=== PATIENT | female | born 1985 ===

== ENCOUNTER 2018-07-16 09:14 | Emergency (ER) | payer OTHER ==
[2018-07-16 09:24] VITALS: BMI 22.6
[2018-07-16 09:31] VITALS: RESP 18
--- NOTE | 2018-07-16 09:50 | C.PDOC ---
History Of Present Illness 33 y/o female,w/PMhx of fibroids, right ovarian cyst, multiple abdominal surgeries, and ? SBO, present to the ER complaining of worsening RLQ abdominal pain and pelvic pain compared to her baseline today. Pt has nausea and vomited x2 today. Denies having fever,chills, and urinary symptoms. Time Seen by Provider: 07/16/18 09:43 Chief Complaint (Nursing): Abdominal Pain History Per: Patient History/Exam Limitations: no limitations Onset/Duration Of Symptoms: Days Current Symptoms Are (Timing): Still Present Severity: Moderate Past Medical History Reviewed: Historical Data, Nursing Documentation, Vital Signs Vital Signs: Last Vital Signs Temp 99 F 07/16/18 09:24 Pulse 74 07/16/18 09:24 Resp 18 07/16/18 09:24 BP 116/77 07/16/18 09:24 Pulse Ox 100 07/16/18 09:24 - Medical History PMH: Chronic Kidney Disease Denies: Depression Other Surgeries: Hx of surgeries - [facility] Procedures INJECT/INFUSE ELECTROLYT (06/01/14) INJECT/INFUSE NEC (06/01/14) Family History: States: No Known Family Hx - Social History Hx Tobacco Use: No Hx Alcohol Use: Yes Hx Substance Use: Yes (marijuana) Review Of Systems Constitutional: Negative for: Fever, Chills Cardiovascular: Negative for: Chest Pain Respiratory: Negative for: Cough Gastrointestinal: Positive for: Nausea, Vomiting, Abdominal Pain. Negative for: Diarrhea Genitourinary: Positive for: Pelvic Pain. Negative for: Dysuria, Hematuria Skin: Negative for: Rash Neurological: Negative for: Weakness, Numbness Physical Exam - Physical Exam Appears: Non-toxic, In Acute Distress, Other (in pain) Skin: Normal Color, Warm, Dry Head: Atraumatic, Normacephalic Eye(s): bilateral: Normal Inspection Oral Mucosa: Moist Neck: Supple Chest: Symmetrical Cardiovascular: Rhythm Regular, No Murmur Respiratory: Normal Breath Sounds, No Rales, No Rhonchi, No Wheezing Gastrointestinal/Abdominal: Bowel Sounds (positive bowel sounds), Soft, Tenderness (right sided pelvic tenderness), No Guarding, No Rebound, Other (vertical old well healed surgical scar distal to umbilicus) Back: No CVA Tenderness Extremity: Normal ROM, No Pedal Edema, No Calf Tenderness Neurological/Psych: Oriented x3, Normal Speech, Normal Cognition ED Course And Treatment - Laboratory Results Result Diagrams: 07/16/18 10:47 07/16/18 10:47 O2 Sat by Pulse Oximetry: 100 (RA) Pulse Ox Interpretation: Normal Medical Decision Making Medical Decision Making: Plan: --Labs --UA --CT-Abd- Pelv. --US- Pelv/Transvag. --Morphine IV pt with multiple abdominal surgeries, multiple ovarian cysts. here with vomiting abdominal pain, eval for sbo 1545 pt feeling better, appears well. pelvic ultrasound neg. ct abdomen has no obstruction, distal esophagus thickened, with moderate constipation. d/c pt home with gi f/u and miralax Disposition Counseled Patient/Family Regarding: Studies Performed, Diagnosis, Need For Followup, Rx Given - Disposition Referrals: Mitesh Mota MD [Medical Doctor] - Thania Jones [Staff Provider] - Disposition: HOME/ ROUTINE Disposition Time: 15:50 Condition: GOOD Additional Instructions: Drink more fluids, and increase fiber in diet. USe Miralax once a day until stool comes out soft. Follow up with Dr Jones, tactical/mobile watch officer. Prescriptions: Polyethylene Glycol 3350 [Miralax] 17 gm PO DAILY #1 bottle Instructions: Constipation, Adult (DC), Acute Abdomen (Belly Pain), Adult (DC) Forms: [facility] (Micronesian), General Discharge Instructions - Clinical Impression Clinical Impression: Constipation, Abdominal pain - PA / INDUSTRIAL MAINTENANCE MANAGER / Resident Statement MD/DO has reviewed & agrees with the documentation as recorded. - Scribe Statement The provider has reviewed the documentation as recorded by the Kenisha Wilkes Provider Attestation All medical record entries made by the Kenisha were at my direction and personally dictated by me. I have reviewed the chart and agree that the record accurately reflects my personal performance of the history, physical exam, medical decision making, and the department course for this patient. I have also personally directed, reviewed, and agree with the discharge instructions and disposition.
[2018-07-16 10:51] LABS: BASO % 0.5 % (0.0-2.0); EOS % 0.5 % (0.0-4.0); HEMOGLOBIN 12.2 g/dL (11.0-16.0); LYMPH # 2.3 K/uL (1.0-4.3); LYMPH % 37.5 % (20.0-40.0); MEAN CELL VOLUME 89.1 fL (81.0-99.0); MEAN CORPUSCULAR HEMOGLOBIN 30.1 pg (27.0-31.0); MEAN CORPUSCULAR HGB CONC 33.8 g/dL (33.0-37.0); MEAN PLATELET VOLUME 8.1 fL (7.2-11.7); MONO # 0.6 K/uL (0.0-0.8); MONO % 9.6 % (0.0-10.0); NEUT # 3.1 K/uL (1.8-7.0); NEUT % 51.9 % (50.0-75.0); NRBC % 0.1 % (0.0-2.0); RBC 4.05 Mil/uL (3.80-5.20); RED CELL DISTRIBUTION WIDTH 13.1 % (11.5-14.5)
[2018-07-16 11:05] LABS: ALB/GLOB RATIO 1.6 (1.0-2.1); ALBUMIN 4.6 g/dL (3.5-5.0); ALT/SGPT 12 U/L (9-52); AST/SGOT 19 U/L (14-36); BLOOD UREA NITROGEN 15 mg/dL (7-17); CALCIUM 9.1 mg/dl (8.6-10.4); GFR NON-AFRICAN AMERICAN > 60; LIPASE 49 U/L (23-300)
[2018-07-16] MEDS ORDERED: Iohexol 240 (50 ml) PO STA (11:06)
[2018-07-16 11:19] LABS: SQUAMOUS EPITHIAL 1 /hpf (0-5); URINE BILIRUBIN NEGATIVE (NEGATIVE); URINE BLOOD 2+ (NEGATIVE); URINE CLARITY Hazy (Clear); URINE COLOR Straw (YELLOW); URINE GLUCOSE (UA) NORMAL (Normal); URINE LEUKOCYTE ESTERASE NEG Leu/uL (Negative); URINE PROTEIN NEGATIVE (NEGATIVE); URINE UROBILINOGEN NORMAL mg/dL (0.2-1.0)
[2018-07-16] MEDS ORDERED: Iohexol 240 (50 ml) ONE (12:15)
--- NOTE | 2018-07-16 12:44 | US ---
Date of service: 07/16/2018 HISTORY: right lower quad pain, hx ovarian cysts, sbo COMPARISON: None available. TECHNIQUE: Transabdominal and transvaginal FINDINGS: UTERUS: Measures 9.1 x 4.3 x 5.4 cm. Normal in size and appearance. No fibroid or other mass lesion seen. ENDOMETRIUM: Measures 10 mm in diameter. Unremarkable. CERVIX: No cervical abnormality identified. RIGHT OVARY: Measures 3.5 x 2.0 x 3.0 cm. No solid mass. Normal flow. LEFT OVARY: Measures 2.7 x 1.9 x 2.2 cm. No solid mass. Normal flow. FREE FLUID: No significant free fluid noted. OTHER FINDINGS: None. IMPRESSION: Unremarkable pelvic ultrasound.
[2018-07-16] MEDS ORDERED: Iodixanol 320 mg/ml 150 ml Bottle IV ONE (13:54)
[2018-07-16 15:24] VITALS: BP 143/87; PULSE 71; TEMP 98.7
--- NOTE | 2018-07-16 15:37 | CT ---
PROCEDURE: CT Abdomen and Pelvis with oral and IV contrast. HISTORY: hx ovarian cysts and sbo COMPARISON: Pelvic ultrasound performed 07/16/19 TECHNIQUE: Contiguous axial images of the abdomen and pelvis. Oral and IV contrast was administered. Coronal and Sagittal reformats generated and reviewed. Contrast dose: 100 mL Visipaque 320 IV Radiation dose: Total exam DLP = 245.94 mGy-cm. This CT exam was performed using one or more of the following dose reduction techniques: Automated exposure control, adjustment of the mA and/or kV according to patient size, and/or use of iterative reconstruction technique. FINDINGS: LOWER THORAX: No visible consolidation, pleural effusion, or pneumothorax. Markedly thickened distal esophagus. LIVER: Unremarkable. GALLBLADDER AND BILE DUCTS: Unremarkable. PANCREAS: Unremarkable. SPLEEN: Unremarkable. ADRENALS: Unremarkable. KIDNEYS AND URETERS: The kidneys enhance symmetrically. No hydronephrosis or obstructing renal calculus. BLADDER: The urinary bladder appears unremarkable. REPRODUCTIVE: Uterus is present. APPENDIX: The appendix appears within normal limits of caliber. No secondary signs of acute appendicitis. BOWEL: The stomach is nondistended. The bowel loops appear within normal limits of caliber without evidence of intestinal obstruction. Moderate constipation. PERITONEUM: No significant free fluid. No definite free air. LYMPH NODES: No bulky lymphadenopathy identified. VASCULATURE: No aortic aneurysm. No atherosclerotic calcification or mural plaque present. BONES: No acute osseous abnormality is detected. OTHER FINDINGS: None. IMPRESSION: Marked thickening of the distal esophagus; correlate clinically including endoscopy if indicated. Moderate constipation.
[2018-07-16 15:50] VITALS: O2SAT 100
== END 2018-07-16 16:02 | disposition home or self-care (01) ==
LOC: C.ER 09:14
DX: K59.00 Constipation, unspecified (principal); R10.31 Right lower quadrant pain
CPT/HCPCS: 74177; 76830; 76856; 80053; 81001; 81025; 83690; 85025; 87086; 96374; 99285; J2270; Q9966; Q9967